=== PATIENT | male | born 1940 | race Caucasian/White ===

== ENCOUNTER 2019-02-21 15:48 | Emergency (ER) | payer OTHER ==
[~2019-02-21] VITALS: Ht 177.8 cm; Wt 70.3 kg
[2019-02-21 16:01] VITALS: Ht 177.8 cm; Wt 70.3 kg
[2019-02-21 21:26] LABS: BASOPHIL % 0.7 % (0-2); PLATELET COUNT 404 x10^3mcL (130-400); RED CELL DISTRIBUTION WIDTH 14.9 % (11.5-14.5)
[2019-02-21 21:32] LABS: CALCIUM 8.1 mg/dL (8.5-10.1); CARBON DIOXIDE 27.9 mmol/L (21-32); CHLORIDE SERUM 98 mmol/L (98-107); CREATININE SERUM 1.4 mg/dL (0.7-1.3); GLUCOSE SERUM 240 mg/dL (74-106); SODIUM SERUM 134 mmol/L (136-145)
[2019-02-21] MEDS ORDERED: CELEBREX200 MG PO (23:43)
[2019-02-21] MEDS ORDERED: NEU300 PO (23:44)
[2019-02-21] MEDS ORDERED: ESCITALOPRAM10 M1 PO (23:44)
[2019-02-21] MEDS ORDERED: GLUCOTROL5 MG PO (23:45)
[2019-02-21] MEDS ORDERED: IMIPRAMINE HCL25 MG PO (23:45)
[2019-02-21] MEDS ORDERED: LANSOPRAZOLE15 MG PO (23:46)
[2019-02-21] MEDS ORDERED: SIMVASTATIN20 M1 PO (23:47)
[2019-02-21] MEDS ORDERED: METFORMIN HCL1000 MG PO (23:47)
[2019-02-22 03:30] VITALS: BP 120/70
== END 2019-02-22 03:30 | disposition home or self-care (01) ==
LOC: ED 15:48
PROVIDERS: Emergency Medicine
DX: R33.9 Retention of urine, unspecified (principal); N39.0 Urinary tract infection, site not specified; Z46.6 Encounter for fitting and adjustment of urinary device
CPT/HCPCS: 36415

== ENCOUNTER 2019-02-22 19:03 | Emergency (ER) | payer OTHER ==
[~2019-02-22] VITALS: Ht 177.8 cm; Wt 71.7 kg
[~2019-02-22 19:03] MED LIST: CELEBREX200 MG PO; ESCITALOPRAM10 M1 PO; GLUCOTROL5 MG PO; IMIPRAMINE HCL25 MG PO; LANSOPRAZOLE15 MG PO; METFORMIN HCL1000 MG PO; NEU300 PO; SIMVASTATIN20 M1 PO
[2019-02-22 19:11] VITALS: Ht 177.8 cm; Wt 71.7 kg
[2019-02-22 20:28] LABS: UA SPECIFIC GRAVITY <=1.005 (1.005-1.035); microscopic required? YES; urine erythrocyte 2+ (NEGATIVE)
[2019-02-22 21:22] VITALS: BP 120/68
== END 2019-02-22 21:42 | disposition home or self-care (01) ==
LOC: ED 19:03
PROVIDERS: Emergency Medicine
DX: N40.0 Benign prostatic hyperplasia without lower urinary tract symptoms (principal); R33.9 Retention of urine, unspecified; N39.0 Urinary tract infection, site not specified; F32.9 Major depressive disorder, single episode, unspecified; E11.42 Type 2 diabetes mellitus with diabetic polyneuropathy